=== PATIENT | female | born 1965 | race Caucasian/White ===

== ENCOUNTER 2020-12-28 20:30 | Emergency (ER) | payer OTHER ==
[~2020-12-28] VITALS: Ht 152.4 cm; Wt 83.9 kg
[2020-12-28] MEDS ORDERED: PRAMIPEXOLE DI0.5 MG PO (20:41)
[2020-12-28] MEDS ORDERED: METFORMIN HCL500 M1 PO (20:41)
[2020-12-28] MEDS ORDERED: GLIPIZIDE ER2.5 MG PO (20:41)
[2020-12-28] MEDS ORDERED: ESTRADIOL0.5 MG PO (20:41)
[2020-12-28] MEDS ORDERED: XELJANZ5 MG PO (20:41)
[2020-12-28] MEDS ORDERED: LOSARTAN-HCTZ1 EAC2 (20:41)
[2020-12-28] MEDS ORDERED: SIMVASTATIN80 MG PO (20:41)
[2020-12-28] MEDS ORDERED: LEVOTHYROXINE137 MCG PO (20:42)
[2021-01-13] MEDS ORDERED: BAYER CHEWABLE81 MG (15:36)
[2021-01-13] MEDS ORDERED: OSTERA TABLET1 EACH PO (15:36)
== END 2020-12-28 21:50 | disposition home or self-care (01) ==
LOC: ED 20:30
DX: S92.351A Displaced fracture of fifth metatarsal bone, right foot, initial encounter for closed fracture (principal); W17.89XA Other fall from one level to another, initial encounter; I10 Essential (primary) hypertension; E11.9 Type 2 diabetes mellitus without complications; Z79.899 Other long term (current) drug therapy; Z79.84 Long term (current) use of oral hypoglycemic drugs
CPT/HCPCS: 73630; 99283-25

== ENCOUNTER 2021-01-15 07:45 | Day surgery (SDC) | payer OTHER ==
[~2021-01-15] VITALS: Ht 152.4 cm; Wt 83.0 kg
[~2021-01-15 07:45] MED LIST: BAYER CHEWABLE81 MG; ESTRADIOL0.5 MG PO; GLIPIZIDE ER2.5 MG PO; LEVOTHYROXINE137 MCG PO; LOSARTAN-HCTZ1 EAC2; METFORMIN HCL500 M1 PO; OSTERA TABLET1 EACH PO; PRAMIPEXOLE DI0.5 MG PO; SIMVASTATIN80 MG PO; XELJANZ5 MG PO
--- NOTE | 2021-01-15 11:59 | NUR ---
RESTS QUIETLY WITH EYES CLOSED, RESP EVEN.
[2021-01-15] MEDS ORDERED: CELECOXIB200 MG PO (13:05)
--- NOTE | 2021-01-15 13:15 | NUR ---
01/15/21 1315 Areli Pelletier 1308- PT ARRIVES TO PACU NONAROUSABLE TO NOXIOUS STIMULI WITH AN OPA IN PLACE. RESP EVEN AND UNLABORED. OXYGEN SAT HIGH 90'S TO 100% ON 6L VIA MASK. 1311- CBG 153 TAKEN BY MAIKEL HOLLIS RN. 1312- ICE PACK APPLIED TO PT'S RIGHT ANKLE/ FOOT.
--- NOTE | 2021-01-15 13:29 | EKG ---
[facility] [address] [facility] [place], [place] [address] Signed Normal sinus rhythm Abnormal QRS-T angle, consider primary T wave abnormality Prolonged QT Abnormal ECG No previous ECGs available Confirmed by MICHAEL COOPER DO ([id number]) on 01/15/2021 1:29:09 PM Electronically Signed By: IMCHAEL COOPER DO 01/15/21 1329 PATIENT NAME: JEFFREY GARIBAY JHONY Electrocardiogram DATE OF : 67 PHYSICIAN: MICHAEL COOPER DO REPORT #: [id number] REPORT IS CONFIDENTIAL AND NOT TO BE RELEASED WITHOUT AUTHORIZATION
--- NOTE | 2021-01-15 14:43 | NUR ---
PATIENT UP TO BATHROOM, VOIDED WELL. NO NAUSEA OR PAIN AT THIS TIME. PATIENT NOW DRESSING AND REQUESTING TO BE DISCHARGED HOME. APPEARS STEADY ON FEET. DRESSING TO LEG C/D/I. VSS.
--- NOTE | 2021-01-15 15:15 | NUR ---
PROVIDED PATIENT DISCHARGE INSTRUCTION, PATIENT VERBALIZED UNDERSTANDING.DRESSING TO FOOT C/D/I. WALKING BOOT ON, PATIENT USING CRUTCHES WALL AND DEMONSTRATING GOOD TECHNIQUE WITH TOE-TOUCH. PROVIDED PATIENT WITH WHEELCHAIR RIDE TO CAR.
--- NOTE | 2021-01-16 09:56 | OR ---
[facility] [address] [place], [place] [address] Signed DATE OF OPERATION: 01/15/2021 SURGEON: Carissa Pool MD PREOPERATIVE DIAGNOSIS: Right 5th metatarsal fracture displaced. POSTOPERATIVE DIAGNOSIS: Right 5th metatarsal fracture displaced. PROCEDURE PERFORMED: Open reduction and internal fixation of right 5th metatarsal. BOTTOMER OPERATOR: Ibis Burns PA-C. She was present and critical for all portion of procedure. ANESTHESIA: General. BLOOD LOSS: Minimal. IMPLANTS: A 4.3 x 46 mm Arthrex headless screw. BRIEF HISTORY: Jeffrey is a 55-year-old female who fell and fractured her foot. She walked on it for a while before getting radiographs, which showed mild displacement of a true Martin type fracture. Risks and benefits of operative treatment were discussed with her and she elected to proceed. DESCRIPTION OF PROCEDURE: Once consent was obtained, she elected to proceed. Once the adequate anesthesia was established, she was placed on operating room bed. All downside pressure points were well padded and hip bump was placed. The leg was prepped and draped in the standard sterile fashion. A 1 cm incision was made proximal to the 5th metatarsal head. Blunt dissection was taken down to the tip of the metatarsal. The guidewire was then centered on the tip of the metatarsal and under direct image intensifier guidance, was advanced up the center of the shaft of the metatarsal. This was then measured and a 46 mm screw Electronically Signed By: CARISSA POOL MD 01/16/21 0956 PATIENT NAME: JEFFREY GARIBAY OPERATIVE REPORT DATE OF : 67 REPORT #: [id number] PHYSICIAN: CARISSA POOL MD PCP: EDMUNDO WOODRUFF MD REPORT IS CONFIDENTIAL AND NOT TO BE RELEASED WITHOUT AUTHORIZATION [facility] [address] [place] [phone] Signed was selected. The drill was placed over the guidewire and the drill was advanced, but not fully. We then placed the screw over the guidewire and advanced it, again under image intensifier guidance, holding the 5th metatarsal in a reduced position. It was tightened quite significantly and the guidewire was removed. Final radiographs showed good reduction of the fracture, placement of the screw and screw lengths. The wounds were copiously irrigated with antibiotic solution, closed with 3-0 Monocryl and Steri-Strips. Wound was dressed with Allevyn dressing, Keegan wrap, and she was placed back into a fracture boot. She tolerated this well. All sponge, needle, and instrument counts were correct. Carissa Pool MD BA/DANDY /[id number] Copies: ~ Electronically Signed By: CARISSA POOL MD 01/16/21 0956 PATIENT NAME: JEFFREY GARIBAY JHONY OPERATIVE REPORT DATE OF : 67 REPORT #: [id number] PHYSICIAN: CARISSA POOL MD PCP: EDMUNDO WOODRUFF MD REPORT IS CONFIDENTIAL AND NOT TO BE RELEASED WITHOUT AUTHORIZATION
== END 2021-01-15 15:15 | disposition home or self-care (01) ==
LOC: DS 07:45
PROVIDERS: ATTEND Specialist
PROC: 0QSN04Z Reposition Right Metatarsal with Internal Fixation Device, Open Approach (ICD-10-PCS; principal; 2021-01-15 10:30)
DX: S92.351A Displaced fracture of fifth metatarsal bone, right foot, initial encounter for closed fracture (principal); E89.0 Postprocedural hypothyroidism; J45.909 Unspecified asthma, uncomplicated; I10 Essential (primary) hypertension; E11.9 Type 2 diabetes mellitus without complications; E78.00 Pure hypercholesterolemia, unspecified; Z85.048 Personal history of other malignant neoplasm of rectum, rectosigmoid junction, and anus; Z85.850 Personal history of malignant neoplasm of thyroid; Z79.84 Long term (current) use of oral hypoglycemic drugs; Z88.2 Allergy status to sulfonamides; Z87.891 Personal history of nicotine dependence; Z79.82 Long term (current) use of aspirin; W10.1XXA Fall (on)(from) sidewalk curb, initial encounter
CPT/HCPCS: 01480; 64445; 64447; 73620; 76942; 93005; 93010; C1713; J0690; J1100; J1885; J2001; J2250; J2405; J2704; J2795; J7121

== ENCOUNTER 2021-05-15 19:13 | Inpatient (IN) | payer OTHER ==
[~2021-05-15] VITALS: Ht 152.4 cm; Wt 78.7 kg
[~2021-05-15 19:13] MED LIST changes: +ADULT ASPIRIN R81 MG PO; -BAYER CHEWABLE81 MG; +CELECOXIB200 MG PO; -LOSARTAN-HCTZ1 EAC2; +LOSARTAN-HCTZ1 EAC2 PO; -OSTERA TABLET1 EACH PO; +VITAMIN D325 MCG PO
--- NOTE | 2021-05-16 04:05 | NUR ---
PT ARRIVED TO MS ROOM 112 FROM ED VIA W/C ACOMPANIED BY ED RN
--- NOTE | 2021-05-16 04:57 | NUR ---
coop with admit assessment, tight lungs on 4LNC, moist non productive cough present at this time, proning positioning pamphlet information givrn verbally and written. explained to her and stated understanding. sl patent. completed Resmedevir infusing w/o problems. Oriented to room
--- NOTE | 2021-05-16 05:43 | NUR ---
PT ADMITTED AT 0400 FROM ED, AIRBORNE ISOLATION PRECAUTIONS, COVID+. ALERT AND ORIENTED, ON 4LNC, MOIST NON PRODUCTIVE COUGH PRESENT. PT STATED THAT SHE DOES NOT WANT COUGH SYRUP WITH OR W/O CODEINE SHE IS CONFUCIANISM. PT RECEIVED REMDESIVIR INFUSION SHORTLY AFTER ADMISSION, TOLERATED WELL. SL PATENT. [place], WEARS BILAT HEARING AIDS, ALERT AND ORIENTED, PLEASANT, RESTING AT THIS TIME. DUE TO VOID. PT AWARE.
--- NOTE | 2021-05-16 06:28 | NUR ---
awakes easily, on 4lnc, cpox in place, sats 90-91%. denies need to get up to urinate. goes back to sleep, call light and fluids at hands reach
--- NOTE | 2021-05-16 08:46 | NUR ---
THIS RN TO ROOM TO PLACE PT ON CPOX THAT CAN BE SEEN FROM NURSES STATION RATHER THAN BEDSIDE CPOX. PT UP IN RESTROOM FOR SHOWER AND ORAL CARE. PT INDEPEDANT WITH CARES. PT FINISHED WITH SHOWER, STEADY ON FEET. PULSE OX PLACED. PT 100% ON 10L O2 BY NC WHILE UP TO RESTROOM. PT BACK TO BED. PT WEANED TO ROOM AIR AND MAINTAINING OXYGEN SATURATIONS ABOVE 90. CARMEN MCFADDEN, TO BEDSIDE FOR MORNING CARES. CALL LIGHT WITHIN REACH. BED RAILS UP. PTS PRIMARY RN, KAREN, UPDATED.
--- NOTE | 2021-05-16 08:52 | NUR ---
PT BEGINING TO DROP TO 89% ON ROOM AIR. OXGYEN INCREASED TO 2L O2 BY WV WITH OXGYEN SATRUATIONS ABOVE 90%. I.S. PROVIDED AND EDUCATION DONE REGARDING I.S. USE. PT DEMONSTRATES USE REACHING 750ML X3. BREAKFAST ORDER PLACED. PT DENIES ADDIITONAL REQUESTS OR COMPLAINTS. CALL LIGHT WITHIN REACH. BED RAILS UP.
--- NOTE | 2021-05-16 09:00 | NUR ---
REPORT RECEIVED FROM NIGHT RN AND PT. CARE RESUMED. PT. IS ALERT AND ORIENTED. ON 2L NC. IV SITE WNL AND FLUSHES WELL. SHE IS ANXIOUS TO HAVE HER THYROID MED ONCE SEEN BY MD. BREATHING UNLABORED AND O2 SAT IS 97%. DISCUSSED POC AND MEDS. LEFT RESTING WITH CALL LIGHT IN REACH.
--- NOTE | 2021-05-16 10:30 | NUR ---
ROUNDING ON PT. O2 SAT. IS 100% AND TITRATED TO 1L. BROUGHT WATER AND LEFT RESTING WITH CALL LIGHT IN REACH.
--- NOTE | 2021-05-16 13:27 | NUR ---
MONITOR SHOWS O2 SAT. STAYING BETWEEN 80-85% ON RA. PT. PLACED ON 2L NC. 02 SAT RETURNED TO 95%. WILL CONTINUE TO MONITOR.
[2021-05-16] MEDS ORDERED: IMODIUM A-D2 M2 PO (14:07)
--- NOTE | 2021-05-16 14:07 | NUR ---
MED REC COMPLETE
--- NOTE | 2021-05-16 16:21 | NUR ---
THIS NURSE ENCOURAGE TO PT. TO PRONE AND PT. AGREEABLE. PT. ON RA AND O2 SAT. IS 92% LEFT RESTING WITH CALL IN REACH.
--- NOTE | 2021-05-16 19:00 | NUR ---
SHIFT REPORT RECEIVED FROM KAREN RODARTE. PT RESTING PRONE IN BED. CPOX 95% ON RA. CALL LIGHT IN REACH.
--- NOTE | 2021-05-16 22:00 | NUR ---
ASSESSMENT, VS AND I&O COMPLETED. GCS 15, A&O X4. LUNGS CLEAR IN ALL LOBES EXCEPT FINE CRACKLES IN RIGHT LOWER LOBE. ABD SOFT, NONTENDER, BOWEL TONES ACTIVE. SCHEDULED MEDS PROVIDED. IV WNL, CDI, FLUSHED WELL. CMS INTACT. ICE WATER PROVIDED. NO OTHER NEEDS AT THIS TIME. CALL LIGHT IN REACH.
--- NOTE | 2021-05-17 | NUR ---
PT RESTING IN BED ON RIGHT SIDE. SPO2 95% ON 1L NC. CALL LIGHT IN REACH.
--- NOTE | 2021-05-17 02:01 | NUR ---
VS AND I&O COMPLETE. PT RESTING IN BED, SPO2 90% ON 1L NC. PT EDUCATION GIVEN ON I.S AND ACCAPELLA, PT USED THEM AND HAS A DRY COUGH WITH USE. SPO2 NOW 92% ON 1L NC. NO OTHER NEEDS. CALL LIGHT IN REACH.
--- NOTE | 2021-05-17 03:53 | NUR ---
PT RESTING IN BED. SPO2 93% ON 1L NC. CALL LIGHT IN REACH.
--- NOTE | 2021-05-17 05:26 | NUR ---
ASSESSMENT, VS, I&O AND LABS COMPLETED. LUNGS CLEAR IN UPPER LOBES AND DIM IN LOWER LOBES. DENIES SOB. CPOX 94% ON 1L NC. ICE WATER PROVIDED. NO OTHER NEEDS. CALL LIGHT IN REACH.
--- NOTE | 2021-05-17 07:28 | NUR ---
REPORT RECEIVED FROM IMTIAZ MORALES.
--- NOTE | 2021-05-17 09:57 | NUR ---
PATIENT IN BED RESTING WITH EYES CLOSED. VITALS AND I&O'S CHARTED. CALL LIGHT IN REACH. NO FURTHER NEEDS AT THIS TIME.
--- NOTE | 2021-05-17 09:59 | NUR ---
PT LAYING ON LEFT SIDE. STARTED REMDESIVIR. PT DENIES NEEDS ATT.
--- NOTE | 2021-05-17 14:25 | NUR ---
PATIENT SITTING UP IN BED TALKING ON PHONE. VITALS AND I&O'S CHARTED. CALL LIGHT IN REACH. NO FURTHER NEEDS AT THIS TIME.
[2021-05-17] MEDS ORDERED: DEXAMETHASONE6 MG PO (14:27)
== END 2021-05-17 15:05 | disposition home or self-care (01) | DRG 177 ==
LOC: ED 19:13 → MS 05-16 03:37
PROVIDERS: ADMIT Student in an Organized Health Care Education/Training Program; ATTEND Student in an Organized Health Care Education/Training Program
PROC: XW033E5 Introduction of Remdesivir Anti-infective into Peripheral Vein, Percutaneous Approach, New Technology Group 5 (ICD-10-PCS; principal; 2021-05-16)
PROC: 3E0333Z Introduction of Anti-inflammatory into Peripheral Vein, Percutaneous Approach (ICD-10-PCS; 2021-05-16)
DX: U07.1 COVID-19 (principal); J96.01 Acute respiratory failure with hypoxia; I10 Essential (primary) hypertension; E11.9 Type 2 diabetes mellitus without complications; K52.89 Other specified noninfective gastroenteritis and colitis; E87.6 Hypokalemia; E78.5 Hyperlipidemia, unspecified; Z85.038 Personal history of other malignant neoplasm of large intestine; L40.50 Arthropathic psoriasis, unspecified; E03.9 Hypothyroidism, unspecified; G25.81 Restless legs syndrome; Z90.710 Acquired absence of both cervix and uterus; Z90.89 Acquired absence of other organs; Z98.890 Other specified postprocedural states; Z85.850 Personal history of malignant neoplasm of thyroid; Z88.2 Allergy status to sulfonamides; Z88.8 Allergy status to other drugs, medicaments and biological substances; Z79.899 Other long term (current) drug therapy; Z79.84 Long term (current) use of oral hypoglycemic drugs; Z79.82 Long term (current) use of aspirin
CPT/HCPCS: 71045; 80053; 83880; 85025; 87070; 87205; 94668; 94760; 94761; 96374; 99284-25; A9270; J1100; J1650; J1815; J7050; U0003

== ENCOUNTER 2023-08-05 09:27 | Emergency (ER) | payer OTHER ==
[~2023-08-05] VITALS: Ht 152.4 cm; Wt 95.3 kg
[~2023-08-05 09:27] MED LIST changes: +DEXAMETHASONE6 MG PO; +IMODIUM A-D2 M2 PO
[2023-08-05] MEDS ORDERED: LEVOTHYROXINE150 MCG PO (09:44)
[2023-08-05] MEDS ORDERED: TERBINAFINE HC250 MG PO (09:45)
[2023-08-05] MEDS ORDERED: OZEMPIC0.25 MG/02 SUB-Q (09:46)
[2023-08-05] MEDS ORDERED: METOPROLOL SUCC25 MG PO (09:47)
[2023-08-05] MEDS ORDERED: LOSARTAN-HCTZ1 EAC1 PO (09:47)
[2023-08-05 09:55] LABS: BASOPHILS 0.3 % (0-2); EOSINOPHILS 0.2 % (0-6); HEMATOCRIT 39.8 % (35.0-50.0); HEMOGLOBIN 13.4 g/dL (12.0-18.0); LYMPHOCYTES 2.7 % (24-44); MCH 31.5 (27-36); MCHC 33.6 g/dl (30-36); MCV 93.8 fl (81-99); MONOCYTES 7.4 % (0-12); NEUTROPHILS 89.4 % (39-80); PLATELET COUNT 396 K/uL (140-440); RBC 4.24 M/ul (4.3-5.7); RDW 14.8 (10.5-15.0)
[2023-08-05 10:07] LABS: BILIRUBIN, URINE NEGATIVE (negative); BLOOD/HGB, URINE MODERATE (Negative); KETONE, URINE >=80 (Negative); LEUK ESTERASE, URINE MODERATE (negative); NITRITE, URINE POSITIVE (negative); PH, URINE 5.5 (5-7)
[2023-08-05 10:15] LABS: EPITHELIAL CELLS, URINE SQUAMOUS 2+ /lpf (0-1+); WHITE BLOOD CELLS, URINE >50 /HPF (0-5)
[2023-08-05 10:16] LABS: BACTERIA, URINE 3+ /hpf (negative); REFLEX CULTURE, URINE No (No)
[2023-08-05 10:20] LABS: ALBUMIN 3.5 g/dL (3.4-5.0); ALBUMIN/GLOBULIN RATIO 0.88 (1.1-2.4); ANION GAP 17.3 (7-21); BILIRUBIN, TOTAL 0.6 ng/dL (0.2-1.0); BUN/CREATININE RATIO 13.86 (6.0-28.6); CALCIUM 9.5 mg/dL (8.5-10.1); CREATININE, SERUM 1.01 mg/dL (0.55-1.02); POTASSIUM 3.3 mmol/L (3.5-5.1); PROTEIN, TOTAL 7.5 g/dL (6.4-8.2)
[2023-08-05] MEDS ORDERED: CEFDINIR300 MG PO (13:01)
[2023-08-05] MEDS ORDERED: ONDANSETRON ODT4 MG PO (13:01)
[2023-08-05 13:12] VITALS: BP 150/82
--- NOTE | 2023-08-05 22:39 | EKG ---
[facility] [address] [facility] [place], [place] [address] Signed Normal sinus rhythm Normal ECG Confirmed by Amando Dick MD () on 08/05/2023 10:38:57 PM Electronically Signed By: AMANDO DICK MD 08/05/23 2239 PATIENT NAME: SWEENEY JEFFREY MENENDEZ Electrocardiogram DATE OF : 67 PHYSICIAN: AMANDO DICK MD REPORT #: [id number] REPORT IS CONFIDENTIAL AND NOT TO BE RELEASED WITHOUT AUTHORIZATION
== END 2023-08-05 13:14 | disposition home or self-care (01) ==
LOC: ED 09:27
PROVIDERS: Emergency Medicine
DX: N12 Tubulo-interstitial nephritis, not specified as acute or chronic (principal); D72.829 Elevated white blood cell count, unspecified; I10 Essential (primary) hypertension; E11.9 Type 2 diabetes mellitus without complications; Z88.2 Allergy status to sulfonamides; Z79.890 Hormone replacement therapy; Z79.85 Long-term (current) use of injectable non-insulin antidiabetic drugs; Z79.899 Other long term (current) drug therapy; Z79.84 Long term (current) use of oral hypoglycemic drugs; Z79.82 Long term (current) use of aspirin
CPT/HCPCS: 36415; 74176; 76705; 80053; 81001; 83690; 84484; 85025; 87088; 93005; 93010; 96374; 96375; 99284-25; J0696; J1885

== ENCOUNTER 2025-03-07 07:30 | Day surgery (SDC) | payer OTHER ==
[~2025-03-07] VITALS: Ht 152.4 cm; Wt 93.0 kg
[~2025-03-07 07:30] MED LIST changes: +CEFAZOLIN SODIUM 2 GM/20 ML SYR IV SCH; +CEFDINIR300 MG PO; +IBLOOD GLUCOSE TEST STRIP 1 EA TEST VI PRN; +LACTATED RINGER'S 1,000 ML IV SCH; +LEVOTHYROXINE150 MCG PO; +LIDOCAINE HCL 1% 5 ML SDV INJ ONE; +LOSARTAN-HCTZ1 EAC1 PO; +METOPROLOL SUCC25 MG PO; +ONDANSETRON ODT4 MG PO; +OZEMPIC0.25 MG/02 SUB-Q; +REPAGLINIDE1 MG PO; +TERBINAFINE HC250 MG PO; +TRESIBA FL100 UNIT/1 SUB-Q
[2025-03-07 07:36] VITALS: BP 120/75
--- NOTE | 2025-03-07 08:05 | NUR ---
HAD APPT WILL BE HERE LATER.
[2025-03-07] MEDS ORDERED: KETAMINE in NS 50 MG/5 ML SYR ONE (08:37)
[2025-03-07] MEDS ORDERED: KETOROLAC TROMETHAMINE 30 MG/ML VIAL ONE (08:37)
[2025-03-07] MEDS ORDERED: ACETAMINOPHEN 1,000 MG/100 ML VIAL ONE (08:38)
--- NOTE | 2025-03-07 09:07 | NUR ---
UPDATED WITH WAIT. DENIES ANY NEEDS. IV PATENT.
--- NOTE | 2025-03-07 09:32 | NUR ---
DENIES NEED TO VOID. LINE SERVER IN TO TALK WITH PT.
[2025-03-07] MEDS ORDERED: BUPIVACAINE HCL 0.5% 30 ML VIAL ONE (09:36)
[2025-03-07] MEDS ORDERED: Ropivacaine HCl 0.5% 30 ML VIAL ONE (10:00)
[2025-03-07] MEDS ORDERED: DEXAMETHASONE SOD PHOS 10 MG/ML VIAL ONE (10:00)
--- NOTE | 2025-03-07 11:14 | NUR ---
03/07/25 1114 Emiliana Benedict 1103- PT ARRIVES TO PACU, SEMI DAVIS POSITION. NON REACTIVE TO STIMULUS, OPA IN PLACE, BREATHING EVEN AND NON LABORED, O2 AT 6L PER MASK. LR INFUSING TO LW IV, ABD SOFT, NON DISTENDED. ALL MONITORS IN PLACE.
[2025-03-07] MEDS ORDERED: fentaNYL citrate 50 MCG/ML SDV IV PRN (11:30)
[2025-03-07] MEDS ORDERED: NALOXONE HCL 0.4 MG SYR IV PRN (11:30)
[2025-03-07] MEDS ORDERED: MIDAZOLAM HCL 2 MG/2 ML VIAL IV PRN (11:30)
[2025-03-07] MEDS ORDERED: HYDROmorphone HCL 1 MG/ML SYR IV PRN (11:30)
[2025-03-07 12:02] VITALS: BP 144/77
--- NOTE | 2025-03-07 12:05 | NUR ---
NOT IN WAITING AREA. RAILS UP CALL LIGHT IN HAND.
[2025-03-07 12:54] VITALS: BP 126/69
--- NOTE | 2025-03-07 12:56 | NUR ---
OFF O2 SAT 93 TO 94% RA. WANTS TO GO HOME.
--- NOTE | 2025-03-07 12:58 | NUR ---
HAS TAKEN WATER POP AND CRACKERS. DENIES NEED FOR PAIN MEDICINE.
--- NOTE | 2025-03-07 13:14 | NUR ---
HAS BEEN UP TO BR . DC INSTRUCTIONS FROM COMPUTER REVIEWED ORDERS REVIEWED SCRIPT REVIEWED WITH PT AND DR Ramirez IN TO SEE PT. PT HASNT ANY QUESTIONS.
[2025-03-07] MEDS ORDERED: SEVOFLURANE 250 ML BTL INH ONE (16:27)
--- NOTE | 2025-03-12 11:12 | PATH ---
[facility] [address] [place], [place] [address] Signed SPECIMEN(S): A RIGHT BREAST MASS SPECIMEN SOURCE: A. RIGHT BREAST MASS CLINICAL HISTORY: Abnormal mammogram right breast, intraductal papilloma. FINAL PATHOLOGIC DIAGNOSIS: Right breast mass, lumpectomy: - Benign breast tissue with fibrocystic changes and duct hyperplasia of the usual type. - CUTTER FINISHER detector and prior biopsy site changes are identified. - Negative for residual intraductal papilloma. JVR:clv MICROSCOPIC EXAMINATION: Histologic sections of all submitted blocks are examined by light microscopy. These findings, together with the gross examination, support the pathologic diagnosis. A CK 5/6 immunostain was performed with appropriate controls on block A5 and is positive in the areas of concern supporting the diagnosis. JVR:clv GROSS DESCRIPTION: The specimen, labeled and designated "Nelson Gallegos, " and designated on the requisition "right breast mass," is received in formalin and consists of two portions of unoriented fibroadipose tissue that have a combined weight of 8 g and measure 2.9 x 2.3 x 1.2 cm and 4.3 x 2.4 x 1.5 cm. The tissue fragments are arbitrarily inked and serially sectioned perpendicular to the long axis revealing a metallic material expeditor detector in the larger tissue fragment surrounded by pink-white rubbery fibrous tissue. No discrete mass lesions are grossly identified. The specimen is entirely submitted in 12 cassettes. Cassette Summary: (A1-A3) smaller tissue fragment submitted consecutively (A4-A12) larger tissue fragment, submitted consecutively (material expeditor detector in A6 and circular clip in A5) Time of collection: 10:48 AM March 07, 2025. Time into formalin: 10:56 AM March 07, 2025. PATIENT NAME: JEFFREY GALLEGOS PATHOLOGY DATE OF : 67 REPORT #: [id number] PHYSICIAN: OTTONIEL PATHOLOGY PCP: MARISEL SOSA PAC REPORT IS CONFIDENTIAL AND NOT TO BE RELEASED WITHOUT AUTHORIZATION [facility] [address] [place], [place] [address] Signed Processor load time: 9 AM March 10, 2025. Ischemic time: 8 minutes Total fixation time in formalin: 70 hours 4 minutes The ASCO/CAP guidelines related to HER2 and hormone receptor testing in breast specimens have been met and the specimen has been placed in formalin within one hour and fixed in 10% neutral buffered formalin for 6 to 72 hours. FB (under the direct supervision of a pathologist) The Gross Description was prepared using a voice recognition system. The report was reviewed for accuracy; however, sound-alike word errors, addition and/or deletions may occur. If there is any question about this report, please contact Client Services. ADDITIONAL NOTES: Immunohistochemical and/or in situ hybridization studies were performed on this case with the appropriate positive controls that react as expected. This test was developed and its performance characteristics determined by [facility]. It has not been cleared or approved by the U.S. Food and Drug Administration. The FDA has determined that such clearance or approval is not necessary. This test is used for clinical purposes. It should not be regarded as investigational or for research. [facility] is certified under the Clinical Laboratory Improvement Amendments of 1988 (CLIA) as qualified to perform high complexity clinical laboratory testing. This assay has not been validated for specimens that have been decalcified PERFORMING LABORATORY: Technical component was performed by [facility], [address] [place] [address], [place] [address] (CLIA# [id number]). Professional interpretation was performed by [facility], [address] [place], [place] [address]e., [place] [address] (CLIA#: [id number]). Diagnostician: Shun Fried MD Pathologist Electronically Signed 03/12/2025 Copies: PATIENT NAME: JEFFREY GALLEGOS PATHOLOGY DATE OF : 67 REPORT #: [id number] PHYSICIAN: OTTONIEL MCGINNIS PCP: MARISEL SOSA PAC REPORT IS CONFIDENTIAL AND NOT TO BE RELEASED WITHOUT AUTHORIZATION [facility] [address] [facility] [place] [address] Signed ~ PATIENT NAME: JEFFREY GALLEGOS PATHOLOGY DATE OF : 67 REPORT #: [id number] PHYSICIAN: OTTONIEL MCGINNIS PCP: MARISEL SOSA PAC REPORT IS CONFIDENTIAL AND NOT TO BE RELEASED WITHOUT AUTHORIZATION
== END 2025-03-07 13:05 | disposition home or self-care (01) ==
LOC: DS 07:30
PROVIDERS: ATTEND Surgery
PROC: 0HBT0ZZ Excision of Right Breast, Open Approach (ICD-10-PCS; principal; 2025-03-07 08:20)
DX: D24.1 Benign neoplasm of right breast (principal); N62 Hypertrophy of breast; E11.9 Type 2 diabetes mellitus without complications; I10 Essential (primary) hypertension; E78.00 Pure hypercholesterolemia, unspecified; E89.0 Postprocedural hypothyroidism; E66.9 Obesity, unspecified; Z68.41 Body mass index [BMI] 40.0-44.9, adult; Z79.4 Long term (current) use of insulin; Z79.82 Long term (current) use of aspirin; Z79.84 Long term (current) use of oral hypoglycemic drugs; Z79.890 Hormone replacement therapy; Z79.899 Other long term (current) drug therapy; Z88.2 Allergy status to sulfonamides
CPT/HCPCS: 00400; 76098; 76942; J0131; J0690; J1100; J1885; J2704; J2795; J3490; J7121

== ENCOUNTER 2025-04-23 12:06 | Emergency (ER) | payer OTHER ==
[~2025-04-23] VITALS: Ht 152.4 cm; Wt 91.0 kg
[~2025-04-23 12:06] MED LIST changes: -CEFAZOLIN SODIUM 2 GM/20 ML SYR IV SCH; -IBLOOD GLUCOSE TEST STRIP 1 EA TEST VI PRN; -LACTATED RINGER'S 1,000 ML IV SCH; -LIDOCAINE HCL 1% 5 ML SDV INJ ONE
[2025-04-23] MEDS ORDERED: GLIPIZIDE ER5 MG PO (12:34)
[2025-04-23] MEDS ORDERED: PRAMIPEXOLE0.125 MG PO (12:34)
[2025-04-23] MEDS ORDERED: LEVOTHYROXINE137 MCG PO (12:35)
[2025-04-23] MEDS ORDERED: SODIUM CHLORIDE 0.9% 1,000 ML IV ONE (12:45)
[2025-04-23 12:49] LABS: BASOPHILS 0.1 % (0.1-1.2); EOSINOPHILS 0 % (0.7-5.8); LYMPHOCYTES 5.5 % (19.3-51.7); MCH 30.4 PG (25.6-32.2); MCHC 34.3 g/dL (32.2-35.5); MCV 88.5 fL (79.4-94.8); MONOCYTES 7.3 % (4.7-12.5); NEUTROPHILS 86.8 % (34.0-71.1); RBC 4.54 M/uL (3.93-5.22)
[2025-04-23 13:00] LABS: ALT (SGPT) 20.0 U/L (14-59); AST (SGOT) 15.0 U/L (15-37); GLOMERULAR FILTRATION RATE,EST 64.0 mL/min (>60); PROTEIN, TOTAL 7.3 g/dL (6.4-8.2); UREA NITROGEN 20.0 mg/dL (7-18)
[2025-04-23] MEDS ORDERED: POTASSIUM CHLORIDE 10 MEQ TABCR PO ONE (13:45)
[2025-04-23] MEDS ORDERED: KLOR-CON M2020 MEQ PO (14:29)
[2025-04-23 14:44] VITALS: BP 126/62
== END 2025-04-23 14:45 | disposition home or self-care (01) ==
LOC: ED 12:06
PROVIDERS: Emergency Medicine
DX: B34.9 Viral infection, unspecified (principal); E87.6 Hypokalemia; I10 Essential (primary) hypertension; E11.9 Type 2 diabetes mellitus without complications; Z88.2 Allergy status to sulfonamides; Z88.8 Allergy status to other drugs, medicaments and biological substances; Z88.6 Allergy status to analgesic agent; Z79.84 Long term (current) use of oral hypoglycemic drugs; Z79.82 Long term (current) use of aspirin; Z79.899 Other long term (current) drug therapy
CPT/HCPCS: 36415; 71045; 80053; 83735; 85025; 96360; 99285-25; A9270; J7030